=== PATIENT | male | born 1975 | race Caucasian/White ===

== ENCOUNTER → 2021-09-13 15:28 | Outpatient (CLI) | payer OTHER, SELFPAY ==
[2021-09-13 16:22] LABS: Hemoglobin A1C% w Est Avg Glu 8.7 % (4.0-6.0)
== END ==
PROVIDERS: PCP Internal Medicine; Referring Provider Student in an Organized Health Care Education/Training Program; Visit Provider Student in an Organized Health Care Education/Training Program
DX: E11.65 Type 2 diabetes mellitus with hyperglycemia (principal)
CPT/HCPCS: 36415; 83036